=== PATIENT | female | born 1990 | race Caucasian/White ===

== ENCOUNTER 2017-06-27 09:09 | Day surgery (SDC) | payer OTHER ==
[~2017-06-27] VITALS: Ht 160 cm; Wt 96.2 kg
[2017-06-27] VITALS (16 sets, daily range): BP systolic 95–120; BP diastolic 53–83; PULSE 73–93; RESP 15–20; Ht 160 cm; Wt 96.2 kg
[~2017-06-27 09:09] MED LIST: BUPIVACAINE 0.25% (MPF) 10 ML 10 ML VIAL ONE; GELATIN SIZE 100 SPONGE ONE; LIDOCAINE 2% (SDV) 5 ML INJ ONE; POLYMYXIN/BACITRACIN 1L IRRIG ONE; PREN1TAB49 PO; THROMBIN 5000 UNIT VIAL ONE
[2017-06-27] MEDS ORDERED: SOD CHLORIDE 0.9% 1,000 ML IV SCH (09:30)
[2017-06-27] MEDS ORDERED: CEFAZOLIN 2 GM/50 ML (PMX) 50 ML IVPB ONE (09:30)
[2017-06-27 10:30] LABS: BASOPHILS % 0.1 % (0.0-2.0); EOSINOPHILS % 0.5 % (0.0-7.0); HEMATOCRIT 36.5 % (37.0-47.0); HEMOGLOBIN 11.6 g/dl (12.0-16.0); LYMPHOCYTES # 2.3 10^3/ul (0.8-2.9); LYMPHOCYTES % 29.2 % (15.0-51.0); MEAN CORPUSCULAR HEMOGLOBIN 25.1 pg (29.0-33.0); MEAN CORPUSCULAR HGB CONC 31.8 g/dl (32.0-37.0); MEAN CORPUSCULAR VOLUME 78.8 fl (82.0-101.0); MEAN PLATELET VOLUME 8.9 fl (7.4-10.4); MONOCYTE # 0.4 10^3/ul (0.3-0.9); MONOCYTES % 4.9 % (0.0-11.0); NEUTROPHIL # 5.1 10^3/ul (1.6-7.5); PLATELET COUNT 279 10^3/UL (140-415); RED BLOOD COUNT 4.63 10^6/ul (4.20-5.40); RED CELL DISTRIBUTION WIDTH 13.7 % (11.5-14.5); WHITE BLOOD COUNT 7.9 10^3/ul (4.8-10.8)
[2017-06-27] MEDS ORDERED: ROCURONIUM 50 MG INJ ONE (10:50)
[2017-06-27] MEDS ORDERED: GLYCOPYRROLATE 0.4 MG INJ ONE (10:50)
[2017-06-27] MEDS ORDERED: NEOSTIGMINE 3 MG/3 ML SYRINGE ONE (10:50)
[2017-06-27] MEDS ORDERED: PROPOFOL 20 ML ONE (10:50)
[2017-06-27] MEDS ORDERED: FENTAnyl 50 MCG/ML VIAL ONE ×2 (10:51→12:48)
[2017-06-27] MEDS ORDERED: ONDANSETRON 4 MG INJ ONE (10:51)
[2017-06-27] MEDS ORDERED: DEXAMETHASONE 4 MG/ML 1 ML INJ ONE (10:51)
[2017-06-27] MEDS ORDERED: CEFAZOLIN 1 GM INJ ONE (10:51)
[2017-06-27] MEDS ORDERED: MIDAZOLAM 1 MG/ML 2 ML INJ ONE (10:51)
[2017-06-27] MEDS ORDERED: BUPIVACAINE 0.25% (MPF) 30 ML INJ ONE (10:52)
[2017-06-27 11:03] LABS: INR 0.8; PROTIME 11.1 Sec (12.2-14.2); PT RATIO 0.9
[2017-06-27 11:04] LABS: PARTIAL THROMBOPLASTIN TIME 33.4 Sec (25.0-35.0)
[2017-06-27 11:06] LABS: BILIRUBIN,INDIRECT 0.7 mg/dl (0-1.1); BILIRUBIN,TOTAL 0.7 mg/dl (0.2-1.3)
[2017-06-27 11:11] LABS: CALCIUM 9.2 mg/dl (8.4-10.2); CREATININE 0.61 mg/dl (0.44-1.00)
--- NOTE | 2017-06-27 11:37 | HPN ---
Date/Time of Note Date/Time of Note DATE: 06/27/17 TIME: 11:37 Interval H&P Admission Note Pt. seen H&P reviewed: No system changes CARYN BALDERAS MD Jun 27, 2017 11:37
[2017-06-27] MEDS ORDERED: BUPIVACAINE 0.5%/EPI (SDV) 30 ML INJ ONE (11:38)
[2017-06-27] MEDS ORDERED: MIDAZOLAM 1 MG/ML 2 ML INJ IV PRN ×2 (12:30)
[2017-06-27] MEDS ORDERED: ALBUTEROL 0.083% (NEB) 2.5 MG/3 ML AMP HHN PRN ×2 (12:30)
[2017-06-27] MEDS ORDERED: EPHEDrine SULFATE 50 MG/5 ML SYG IV PRN ×2 (12:30)
[2017-06-27] MEDS ORDERED: FENTAnyl 50 MCG/ML VIAL IV PRN ×6 (12:30)
[2017-06-27] MEDS ORDERED: TRIMETHOBENZAMIDE 100 MG/ML VIAL IM PRN ×2 (12:30)
[2017-06-27] MEDS ORDERED: HYDROmorphONE (0.2 MG/ML) 10ML SYG IV PRN ×6 (12:30)
[2017-06-27] MEDS ORDERED: hydrALAzine 20 MG INJ IV PRN ×2 (12:30)
[2017-06-27] MEDS ORDERED: LABETALOL HCL 20MG INJ IV PRN ×2 (12:30)
[2017-06-27] MEDS ORDERED: DIPHENHYDRAMINE 50 MG INJ IV PRN ×2 (12:30)
[2017-06-27] MEDS ORDERED: MEPERIDINE 25 MG INJ IV PRN ×2 (12:30)
[2017-06-27] MEDS ORDERED: ONDANSETRON 4 MG INJ IV PRN ×3 (12:30→13:30)
[2017-06-27] MEDS ORDERED: IPRATROPIUM (NEB) 0.5 MG/2.5 ML AMP HHN PRN ×2 (12:30)
[2017-06-27] MEDS ORDERED: OXYCODONE/ACETAMINOPHEN (5/325) TAB PO PRN ×4 (12:30)
[2017-06-27] MEDS ORDERED: SUGAMMADEX SODIUM 200 MG/2 ML VIAL IV ONE (12:51)
--- NOTE | 2017-06-27 13:13 | OPR ---
Date/Time of Note Date/Time of Note DATE: 06/27/17 TIME: 13:06 Operative Report Procedure Date: Jun 27, 2017 Preoperative Diagnosis Cholelithiasis/chronic cholecystitis Postoperative Diagnosis Cholelithiasis/chronic cholecystitis Operation/Procedure Performed Laparoscopic cholecystectomy Surgeon see signature line [employer] System Administrator None Anesthesia Type: general Anesthesiologist: Dominik Lim M.D. Estimated Blood Loss: minimal Transfusion none Specimen Gallbladder Grafts/Implants none Complications none Pt Condition Post Procedure: stable Disposition: PACU Indications The patient is a obese 26-year-old female who presented with epigastric and right upper quadrant abdominal pain. The patient had clinical signs and symptoms of biliary colic and chronic cholecystitis which was confirmed via an ultrasound which showed the presence of gallstones. The patient was scheduled for laparoscopic cholecystectomy; possible open as definitive treatment to prevent further sequelae of gallstone disease which include but are not limited to: Gangrenous cholecystitis, choledocholithiasis, gallstone pancreatitis, ascending cholangitis, etc. All risks and benefits of the procedure including but not limited to: Wound infection, excessive bleeding, common bile duct injury , postoperative biliary leak, retained common bile duct stone, injury to intra- abdominal organs, conversion to open procedure, possible need for subsequent surgeries, etc. were all explained to the patient in full detail. She fully understood and wished to proceed with the procedure. Informed consent was therefore obtained. Procedure Description The patient was brought to the operating room and placed supine on the operating table. Bilateral sequential compression devices were placed on both lower extremities. A dose of broad-spectrum perioperative intravenous antibiotics was given. After the induction of smooth general endotracheal anesthesia the patient's abdomen was prepped and draped in the standard surgical fashion. After performance of the surgical timeout a 5 mm incision was made in the superior umbilicus and a Veress needle was used to access the intra- abdominal cavity atraumatically. Pneumoperitoneum was then obtained and the Veress needle was exchanged for a 5 mm trocar through which a 5 mm laparoscope was placed. Three further working ports were then placed a 12 mm port in the sub -xiphoid region and two 5 mm ports in the right upper quadrant. All port sites were anesthetized with 0.25% Marcaine with epinephrine prior to incision. The gallbladder was distended and difficult to grasp. Therefore, using a decompressing needle inserted through the lateralmost port site the gallbladder was decompressed. Approximately 60 cc of hydropic bile was aspirated. Using atraumatic graspers the gallbladder was then grasped and retracted superiorly and laterally exposing the area of Donnelly's pouch. Dissection was begun in this area using a combination of blunt dissection and hook electrocautery. There was chronic scarring and adhesions in this area. The cystic duct was identified as it entered straight into the neck of the gallbladder. It was dissected free of surrounding tissues and clipped proximally and distally x 3 and transected using EndoShears. Dissection was then continued posteriorly. The cystic artery was identified and dissected free of surrounding tissues. It too was clipped proximally and distally x 3 and transected using EndoShears. The gallbladder was then dissected off the liver bed using electrocautery. Once completely free the gallbladder was placed in an Endo Catch bag and withdrawn through the subxiphoid port site and passed off the field as specimen. Hemostasis was then inspected for and noted to be total. The abdomen was then irrigated with several liters of warm normal saline and the irrigant returned crystal clear. The fascia of the subxiphoid port site was then reapproximated using an endo-close device. Pneumoperitoneum was then released and all remaining trochars were withdrawn under direct vision. The subcutaneous tissues were irrigated with more warm normal saline. The skin was then reapproximated using 4-0 Monocryl sutures in subcuticular fashion. The incisions were cleaned and Dermabond was applied to the incisions and the patient was awoken from anesthesia and transported to the recovery room in stable condition. All counts were correct at the end of the case x 2. CARYN BALDERAS MD Jun 27, 2017 13:13
[2017-06-27] MEDS ORDERED: IBUPROFEN 600 MG TAB PO PRN (13:30)
[2017-06-27] MEDS ORDERED: KETOROLAC 30 MG INJ IV PRN (13:30)
[2017-06-27] MEDS ORDERED: HYDROCODONE/APAP (5/325) TAB PO PRN ×2 (13:30)
[2017-06-27] MEDS ORDERED: morphine 2 MG INJ IV PRN (13:30)
== END 2017-06-27 15:01 | disposition home or self-care (01) ==
LOC: SDS 09:09
PROVIDERS: ATTEND Surgery
DX: K80.44 Calculus of bile duct with chronic cholecystitis without obstruction (principal)
CPT/HCPCS: 47562; 80053; 84703; 85025; 85610; 85730; 88304; J0690; J1100; J2250; J2405; J3010; Z7512; Z7610; J2710